=== PATIENT | female | born 1995 | race Caucasian/White ===

== ENCOUNTER 2020-07-15 14:45 | Emergency (ER) | payer BC, SELFPAY ==
[2020-07-15 15:10] VITALS: BP 102/71; PULSE 73; RESP 20; TEMP 36.6; O2SAT 98; BMI 24.3
--- NOTE | 2020-07-15 15:46 | HMH.EDUTC ---
[facility] [place] Impression: Close exposure to COVID-19 virus, Viral syndrome Disposition: Home, Self-Care Condition on Discharge: Good Instructions: DI for COVID-19 (Suspected or Confirmed ), COVID-19 Viral Test, COVID-19: Testing and Tracing, Preventing the Spread of Coronavirus Discharge Instructions Additional Instructions: *Monitor Temp, Over the counter Motrin or Tylenol as directed/as needed Tylenol every 4 hours and Motrin every 6 hours (as long as your family doctor has told you that you can take it) for fever or pain. and straight to ER if unable to lower temp less than 101.0 after medication given *Warm salt water gargles may help to soothe the throat *Throat Lozenges *Warm fluids like tea with honey may help to soothe the throat *Sleep elevated *Humidifier/Vaporizer Follow up IMMEDIATELY for new or worsening symptoms or no Noticeable improvement over the next 48-72 hours. 911 for difficulty breathing or swallowing You were tested for today for COVID19 your test result should be back in the next 24-48 hours, you may call to the [facility] to see if your test results are back in the next 48 hours [phone] [facility] hours are 9am-9pm You was given a handout with instructions for Self Quarantine and Self isolation for while you wait on test results and what to do if they are positive If you are positive the Health Dept will be contacting you also Referrals: Tha Queen MD [Primary Care Provider] - As needed Forms: Work/School Release Time of Disposition: 15:52 Medical Decision Making - Stanton Inquiry Pt receiving controlled substance: No Stanton was queried for this patient: No Vital Signs: 07/15/20 15:10 Temperature 97.9 F Temperature Source Oral Pulse Rate [Right Brachial] 73 Respiratory Rate 20 Blood Pressure [Right Arm] 102/71 L Blood Pressure Mean [Right Arm] 81 Blood Pressure Source [Right Arm] Automatic Cuff Blood Pressure Position [Right Arm] Sitting 02 Sat by Pulse Oximetry 98 Oxygen Delivery Method Room Air Orders (Tests/Meds): ORDERS Category Date Time Status Covid-19 Nasal PCR Sendout P&C Stat Lab 07/15/20 14:49 [place] [facility] [place] - General Stated complaint: covid exposure Time Seen by Provider: 07/15/20 15:46 Mode of Arrival: Ambulatory Source of Information: Patient Limitations: No Limitations Description of Symptoms (Recalled from Triage Doc. by RN): PATIENT REQUESTING COVID TEST D/T EXPOSURE; C/O NAUSEA, RUNNY NOSE, AND FATIGUE HEENT Symptoms (Recalled from RN notes): No Resp Symptoms (Recalled from RN notes): No Skin Symptoms (Recalled from RN notes): No MS Symptoms (Recalled from RN notes): No Functional Status (Recalled from RN notes): WNL - History of Present Illness Provider Complaint: Patient states that she was recently around her mother that tested positive for COVID State that her mother lives with her. State that she has been having runny nose, cough, body aches and nausea States that she wanted to get tested to see if she may have it - Related Data Allergies Allergy/AdvReac Type Severity Reaction Status Date / Time No Known Allergies Allergy Verified 07/19/19 11:19 - Worker's Comp Is this a Worker's Comp case?: No [facility] History - Hepatitis A Screen Drug use history?: No High risk sexual behaviors?: No History of sexually transmitted infection?: No Currently employed?: No Childcare worker?: No Do you have indoor plumbing?: Yes Do you have electricity?: Yes Attestation statement:: This patient has been screened for Hepatitis A risk factors. I have reviewed the patient's past medical history: Yes Other Surgeries: Yes: No Previous Surgery Amputation: No Fractures: Yes - Social History Smoking Status: Never smoker Alcohol Intake: never Substance Use Type: denies use Occupational Status: other Family Hx:: Cancer ROS Obtained: Yes All systems reviewed & no additional complaints, Yes Systems reviewed as appropriate & no additional com
[2020-07-15 16:06] VITALS: BP 102/71; PULSE 73; RESP 20; TEMP 36.6; O2SAT 98
--- NOTE | 2020-07-15 20:59 | PC.NURSE ---
lab called and notified us that they can not find pt's covid swab after it was sent up so I called pt and let her know what had happened and she has agreed to come back in tomorrow morning for a re-swab.
[2020-07-16 10:22] LABS: Covid-19 Nasal PCR Sendout P&C NEGATIVE
== END 2020-07-15 16:07 | disposition home or self-care (01) ==
PROVIDERS: Emergency Provider Nurse Practitioner; PCP Internal Medicine Adolescent Medicine
DX: Z20.828 Contact with and (suspected) exposure to other viral communicable diseases (principal); B34.9 Viral infection, unspecified
CPT/HCPCS: 99201; U0004

== ENCOUNTER → 2020-08-28 17:36 | Outpatient (CLI) | payer BC, SELFPAY ==
[2020-08-28 17:52] LABS: Basophils % 0.4 % (0.1-2.0); Eosinophils # 0.3 K/mm3 (0.0-0.4); Hematocrit 40.8 % (37.0-47.0); Hemoglobin 13.1 g/dL (12.2-16.2); Lymphocytes # 3.2 K/mm3 (0.7-4.5); Lymphocytes % 37.7 % (10-50); Mean Corpuscular HGB Conc 32.1 g/dL (31.8-35.4); Mean Corpuscular Hemoglobin 31.4 pg (27.0-31.2); Mean Corpuscular Volume 97.8 fl (81-99); Mean Platelet Volume 7.2 fl (7.4-10.4); Monocytes # 0.4 K/mm3 (0.1-1.0); Monocytes % 4.9 % (1.7-9.3); Neutrophils # 4.5 K/mm3 (1.8-7.8); Platelet Count 334 K/mm3 (142-424); Red Blood Count 4.17 M/mm3 (4.20-5.40); Red Cell Distribution Width 12.3 % (11.5-17.5); White Blood Count 8.4 K/mm3 (4.8-10.8)
[2020-08-28 18:28] LABS: Chloride 106 mmol/L (98-107)
[2020-08-28 18:29] LABS: Potassium 4.2 mmoL/L (3.5-5.1); Sodium 139 mmol/L (136-145)
[2020-08-28 18:31] LABS: Alanine Aminotransferase 41 U/L (12-78); Alkaline Phosphatase 60 U/L (38-126); Aspartate Amino Transferase 72 U/L (14-36); Bilirubin,Total 0.4 mg/dl (0.2-1.3); Blood Urea Nitrogen 9 mg/dl (7-17); Estimated Glomerular Filt Rate 105 ml/min (>60); GFR (African American) 127 ML/MIN (>60)
[2020-08-28 18:32] LABS: Albumin Level 4.4 g/dl (3.5-5.0); Albumin/Globulin Ratio 1.5 (1.1-1.8); Anion Gap 9.2 mEq/L (5-15); Calcium 9.2 mg/dl (8.4-10.2); Carbon Dioxide 28 mmol/L (22.0-30.0); Glucose 88 mg/dl (74-100); Total Protein,Serum 7.4 g/dl (6.3-8.2)
[2020-08-28 18:49] LABS: Free Thyroxine Index 2.8 ug/dL (5.93-13.13); T4 (Thyroxine) 8.8 ug/dl (5.53-11.0); Triiodothryronine (T3) Uptake 32 % (23.5-40.5)
[2020-08-28 19:03] LABS: Thyroid Stimulating Hormone 2.38 uIU/mL (0.465-4.68)
== END ==
PROVIDERS: Visit Provider Nurse Practitioner Family
DX: K58.1 Irritable bowel syndrome with constipation (principal); N94.6 Dysmenorrhea, unspecified
CPT/HCPCS: 36415; 80053; 84436; 84443; 84479; 85025

== ENCOUNTER → 2021-06-12 16:00 | Outpatient (CLI) | payer BC, SELFPAY | PROVIDERS: Visit Provider Internal Medicine Adolescent Medicine | DX: J02.9 Acute pharyngitis, unspecified (principal) | CPT/HCPCS: 87070 ==

== ENCOUNTER 2021-11-09 17:24 | Emergency (ER) | payer BC, SELFPAY ==
[2021-11-09 18:33] VITALS: BP 103/82; PULSE 84; RESP 19; TEMP 36.9; O2SAT 98; BMI 21.1
--- NOTE | 2021-11-09 18:49 | HMH.EDUTC ---
[facility] [place] Impression: Otitis media Qualifiers: Otitis media type: suppurative Chronicity: acute Laterality: bilateral Recurrence: non-recurrent Spontaneous tympanic membrane rupture: without spontaneous rupture Qualified Code(s): H66.003 - Acute suppurative otitis media without spontaneous rupture of ear drum, bilateral Sinusitis Qualifiers: Sinusitis location: unspecified location Chronicity: acute Recurrence: non-recurrent Qualified Code(s): J01.90 - Acute sinusitis, unspecified Disposition: Home, Self-Care Condition on Discharge: Good Instructions: DI for Sinusitis, Middle Ear Infection Additional Instructions: Drink plenty of fluids. Take tylenol or ibuprofen for pain or fever. Take the medications as directed. Follow up with your regular doctor. GO TO THE ER FOR ANY WORSENING SYMPTOMS Prescriptions: Brompheniramine/Pseudoephed/Dm [Bromfed Dm Cough Syrup] 5 ml PO Q6HP PRN #240 ml PRN Reason: Cough Transmission Status: [facility] Ondansetron [Zofran 4mg ODT] 4 mg PO Q8HP PRN #20 tab PRN Reason: Nausea Transmission Status: [facility] Amoxicillin [Amoxicillin 875MG Tab] 875 mg PO Q12H #20 tab Transmission Status[facility] P[facility] to [facility] methylPREDNISolone [Medrol] 4 mg PO DIRECTED 6 Days #21 packet Transmission Status: [facility] Referrals: Tha Queen MD [Primary Care Provider] - Forms: Work/School Release Time of Disposition: 18:57 Medical Decision Making - Medical Records Medical records reviewed: No: I reviewed the patient's medical records. - Stanton Inquiry Pt receiving controlled substance: No Vital Signs: 11/09/21 18:33 Temperature 98.4 F Temperature Source Oral Pulse Rate [Left] 84 Respiratory Rate 19 Blood Pressure [Right Arm] 103/82 L Blood Pressure Mean [Right Arm] 89 02 Sat by Pulse Oximetry 98 [facility] [place] - General Stated complaint: cough, vaishali, ear ache Time Seen by Provider: 11/09/21 18:49 Mode of Arrival: Ambulatory Source of Information: Patient Limitations: No Limitations Description of Symptoms (Recalled from Triage Doc. by RN): pt c/o a cough, yellow nasal drainage, and sinus pressure x3 days. HEENT Symptoms (Recalled from RN notes): Yes Resp Symptoms (Recalled from RN notes): Yes Skin Symptoms (Recalled from RN notes): No MS Symptoms (Recalled from RN notes): No Functional Status (Recalled from RN notes): wnl - History of Present Illness Provider Complaint: She states that for the past 3 days she has had sinus congestion, nasal congestion, yellow sinus drainage and she has ran a fever. She has left ear pain also. - Related Data Previous Rx's Medication Instructions Recorded Amoxicillin [Amoxicillin 875MG 875 mg PO Q12H #20 tab 11/09/21 Tab] Brompheniramine/Pseudoephed/Dm 5 ml PO Q6HP PRN #240 ml 11/09/21 [Bromfed Dm Cough Syrup] Ondansetron [Zofran 4mg ODT] 4 mg PO Q8HP PRN #20 tab 11/09/21 methylPREDNISolone [Medrol] 4 mg PO DIRECTED 6 Days #21 11/09/21 packet Allergies Allergy/AdvReac Type Severity Reaction Status Date / Time No Known Allergies Allergy Verified 07/19/19 11:19 - Worker's Comp Is this a Worker's Comp case?: No [facility] History - Hepatitis A Screen Drug use history?: No High risk sexual behaviors?: No History of sexually transmitted infection?: No Currently employed?: No Childcare worker?: No Do you have indoor plumbing?: Yes Do you have electricity?: Yes Attestation statement:: This patient has been screened for Hepatitis A risk factors. I have reviewed the patient's past medical history: Yes Other Surgeries: Yes: No Previous Surgery Amputation: No Fractures: Yes - Social History Smoking Status: Never smoker Alcohol Intake: never Substance Use Type: denies use Occupational Status: other Family Hx:: Cancer ROS Obtained: Yes All systems reviewed & no additional complaints - Const
[2021-11-09 19:01] VITALS: BP 103/82; PULSE 84; RESP 19; TEMP 36.9
== END 2021-11-09 19:05 | disposition home or self-care (01) ==
PROVIDERS: Emergency Provider Nurse Practitioner Family; PCP Internal Medicine Adolescent Medicine
DX: H66.003 Acute suppurative otitis media without spontaneous rupture of ear drum, bilateral (principal); J01.90 Acute sinusitis, unspecified; Z79.52 Long term (current) use of systemic steroids
CPT/HCPCS: 99213; G0463

== ENCOUNTER → 2022-09-23 17:20 | Outpatient (CLI) | payer BC, SELFPAY ==
[2022-09-23 18:37] LABS: HCG,Quantitative 253 mIU/ml (0-5.42)
== END ==
PROVIDERS: PCP Internal Medicine Adolescent Medicine; Visit Provider Nurse Practitioner Family
DX: Z34.90 Encounter for supervision of normal pregnancy, unspecified, unspecified trimester (principal)
CPT/HCPCS: 36415; 84702

== ENCOUNTER → 2022-09-27 18:27 | Outpatient (CLI) | payer BC, SELFPAY ==
[2022-09-27 19:21] LABS: HCG,Quantitative 2059 mIU/ml (0-5.42)
== END ==
PROVIDERS: PCP Nurse Practitioner Family; Visit Provider Nurse Practitioner Family
DX: Z34.90 Encounter for supervision of normal pregnancy, unspecified, unspecified trimester (principal)
CPT/HCPCS: 36415; 84702

== ENCOUNTER 2023-12-02 18:00 | Outpatient (CLI) | payer BC, SELFPAY ==
[2023-12-02 19:13] LABS: Alanine Aminotransferase 26 U/L (12-78); Albumin Level 4.3 g/dl (3.5-5.0); Albumin/Globulin Ratio 1.3 (1.1-1.8); Alkaline Phosphatase 68 U/L (38-126); Anion Gap 13.4 mEq/L (5-15); Aspartate Amino Transferase 31 U/L (14-36); Bilirubin,Total 0.4 mg/dl (0.2-1.3); Blood Urea Nitrogen 13 mg/dl (7-17); Calcium 9.4 mg/dl (8.4-10.2); Carbon Dioxide 29 mmol/L (22.0-30.0); Chloride 102 mmol/L (98-107); Estimated Glomerular Filt Rate 121 ml/min (>60); GFR (African American) 146 ML/MIN (>60); Globulin 3.3 g/dL (1.3-3.2); Glucose 99 mg/dl (74-100); Potassium 4.4 mmoL/L (3.5-5.1); Sodium 140 mmol/L (136-145); Total Protein,Serum 7.6 g/dl (6.3-8.2)
[2023-12-02 19:26] LABS: Free T4 (Free Thyroxine) 1.07 ng/dl (0.78-2.19)
[2023-12-02 19:27] LABS: 25-OH Vitamin D, Total 32.7 ng/mL (30-100)
[2023-12-02 19:28] LABS: Triiodothryronine (T3) Uptake 34 % (23.5-40.5)
[2023-12-02 19:31] LABS: T4 (Thyroxine) 8.8 ug/dl (5.53-11.0)
[2023-12-02 19:45] LABS: Thyroid Stimulating Hormone 1.76 uIU/mL (0.465-4.68)
[2023-12-02 20:10] LABS: Ferritin 26.5 ng/ml (6.24-137)
[2023-12-04 08:19] LABS: Thyroid Peroxidase Antibodies <9 IU/mL (0-34); Triiodothyronine (T3) Free 3.1 pg/mL (2.0-4.4)
[2023-12-05 16:49] LABS: Calcium, Ionized 4.9 mg/dL (4.5-5.6)
[2023-12-05 18:10] LABS: Thyroglobulin Level <1.0 IU/mL (0.0-0.9)
== END 2023-12-02 23:59 | disposition home or self-care (01) ==
LOC: LAB.DROPOF 12-03 08:52
PROVIDERS: PCP Nurse Practitioner Family; Visit Provider Nurse Practitioner Family
DX: E04.9 Nontoxic goiter, unspecified (principal); R61 Generalized hyperhidrosis; K59.00 Constipation, unspecified
CPT/HCPCS: 80053; 82306; 82330; 82728; 83970; 84436; 84439; 84443; 84479; 84481; 86376; 86800

== ENCOUNTER 2023-12-08 15:48 | Outpatient (CLI) | payer BC, SELFPAY ==
--- NOTE | 2023-12-08 15:49 | US_ITS ---
FINAL REPORT TECHNIQUE: Sonographic images of the thyroid were obtained. CLINICAL HISTORY: goiter FINDINGS: THYROID ULTRASOUND The right thyroid gland measures 5.1 x 1.0 x 1.6 cm. The parenchyma shows normal echogenicity. No dominant mass is seen. The left thyroid gland measures 5.3 x 2.6 x 3.0 cm. The parenchyma shows normal echogenicity. There is a mostly solid, isoechoic mass measuring 4.1 x 2.3 x 3.0 cm. This is consistent with a TI-RADS 3 nodule. IMPRESSION: Large TI-RADS 3 nodule in the left lobe. Ultrasound-guided biopsy is recommended. Reviewed, Interpreted and Dictated by Chauncey Sharma III, MD Transcribed by Esperanza Archuleta Authenticated and [facility]
== END 2023-12-08 23:59 | disposition home or self-care (01) ==
LOC: RAD 15:49
PROVIDERS: PCP Nurse Practitioner Family; Referring Provider Nurse Practitioner Family; Visit Provider Nurse Practitioner Family
DX: E04.9 Nontoxic goiter, unspecified (principal)
CPT/HCPCS: 76536

== ENCOUNTER 2023-12-23 08:48 | Outpatient (CLI) | payer BC, SELFPAY ==
--- NOTE | 2023-12-23 08:53 | US_ITS ---
FINAL REPORT CLINICAL HISTORY: Enlarged left thyroid nodule -- lio dominguez -- fna lt thyroid bx FINDINGS: Ultrasound guided thyroid biopsy. HISTORY: . Mass within the left lobe of the thyroid Attending radiologist: Dr. Kaplan. Physician Incendiary Powder Mixer: Lio Alonzo PA-C PROCEDURE: After informed consent was obtained and a time-out was performed, the patient was prepped and draped in usual sterile fashion over the left neck. Utilizing local anesthesia and sterile technique with a 25-gauge needle, access to lesion was obtained. A total of 4 passes were made under direct ultrasound guidance. The patient received no conscious sedation. The patient tolerated procedure well and left the department in good condition. IMPRESSION: Status post ultrasound guided biopsy of thyroid without immediate complication. Films reviewed , interpreted and dictated by Dr. Kaplan. Transcribed by Loi Alonzo PA-C. Reviewed, Interpreted and Dictated by Travis Kaplan MD Transcribed by MARIE Coyne Authenticated and . [facility]
== END 2023-12-23 23:59 | disposition home or self-care (01) ==
LOC: RAD 08:51
PROVIDERS: PCP Nurse Practitioner Family; Visit Provider Nurse Practitioner Family
DX: E04.1 Nontoxic single thyroid nodule (principal)
CPT/HCPCS: 76536; 76942